=== PATIENT | male | born 1950 | race Caucasian/White ===

== ENCOUNTER 2018-05-09 01:30 | Inpatient (IN) | payer OTHER ==
[~2018-05-09] VITALS: Ht 182.9 cm; Wt 117.9 kg
[~2018-05-09 01:30] MED LIST: FENOFIBRATE145 M1 PO; FOLIC ACID1 M1 PO; HYDROCHLOROTHIA25 M1 PO; LISINOPRIL5 M1 PO
--- NOTE | 2018-05-09 09:42 | Admission Core Measures ---
Acute Coronary Syndrome (CM) ACS Core Measures Acute Coronary Syndrome Diagnosis No Congestive Heart Failure (NEW) CHF Core Measures Congestive Heart Failure Diagnosis No Cerebrovascular Accident CVA Core Measures CVA/TIA Diagnosis No Venous Thromboembolism VTE Core David (View Protocol) VTE Risk Factors Surgery No Mechanical VTE Prophylaxis d/t N/A MechProphylax Ordered No VTE Pharm Prophylaxis d/t NA PharmProphylax ordered Problem List As ranked by this Provider includes Assessment & Plan 1. Unilateral primary osteoarthritis, right hip HOME MEDS Home Med List Fenofibrate Nanocrystallized (Fenofibrate) 145 MG TABLET 1 TAB PO DAILY cholesterol (Reported) Folic Acid 1 MG TABLET 1 TAB PO DAILY supplement (Reported) Hydrochlorothiazide 25 MG TABLET 1 TAB PO DAILY HTN (Reported) Lisinopril 5 MG TABLET 1 TAB PO DAILY htn (Reported)
--- NOTE | 2018-05-09 09:54 | Surg Short-stay <48hrs Dis Sum ---
Visit Information Visit Dates Admission Date: 05/09/18 Discharge Date: 05/11/18 Surgical Short Stay DC Summary Admission Diagnosis: Right hip osteoarthritis Final Diagnosis: Same Procedure(s): Right total hip arthroplasty Summary/Significant Findings: Patient tolerated the procedure well. Postoperatively was voiding spontaneously tolerating regular diet, pain was managed, was seen and ambulated with physical therapy using a rolling walker and was cleared for discharged home with health services Condition at Discharge: Good Discharge Disposition: home health services Discharge instructions provided to patient/family: Yes Post discharge follow-up plan: To follow-up with Dr. VARGAS in 6 weeks
--- NOTE | 2018-05-09 09:57 | Patient Discharge Instructions ---
Discharge Instructions General Discharge Information You were seen/treated for: Right hip osteoarthritis You had these procedures: Right total hip arthroplasty Watch for these problems: Temperature over 100.4 Drainage from wound Unable to bear weight on right lower extremity Chest pain or shortness of breath Do not soak the wound: Yes No bath, but you may shower: Yes Other wound care: Daily dry dressing change Diet Continue normal diet: Yes Activity Activity Self Limited: Yes Activity Limited to: Weight bear as tolerated (WITH ROLLING WALKER) Acute Coronary Syndrome Inclusion Criteria At DC or during hospital stay patient has or had the following: ACS DIAGNOSIS No Discharge Core Measures Meds if any: Prescribed or Continued at Discharge Meds if any: NOT Prescribed or Continued at Discharge Congestive Heart Failure Inclusion Criteria At DC or during hospital stay patient has or had the following: CHF DIAGNOSIS No Discharge Core Measures Meds if any: Prescribed or Continued at Discharge Meds if any: NOT Prescribed or Continued at Discharge Cerebrovascular accident Inclusion Criteria At DC or during hospital stay patient has or had the following: CVA/TIA Diagnosis No Discharge Core Measures Meds if any: Prescribed or Continued at Discharge Meds if any: NOT Prescribed or Continued at Discharge Venous thromboembolism Inclusion Criteria VTE Diagnosis No VTE Type NONE VTE Confirmed by (Test) NONE Discharge Core Measures - Per Current guidelines, there needs to be overlap - treatment for the first 5 days of Warfarin therapy. - If discharged on Warfarin prior to 5 days of - overlap therapy, the patient will need to be - assessed for post discharge needs including - *Post discharge parental anticoagulation - *Warfarin and/or parental anticoagulation education - *Follow up date to check INR post discharge At least 5 days overlap therapy as Inpatient No Meds if any: Prescribed or Continued at Discharge Note: Overlap Therapy is Warfarin and Anticoagulant Meds if any: NOT Prescribed or Continued at Discharge
[2018-05-09] MEDS ORDERED: MIRALAX17 G1 PO (11:31)
[2018-05-09] MEDS ORDERED: ASPIRIN EC81 M1 PO (11:31)
[2018-05-09] MEDS ORDERED: INDOMETHACIN25 M1 PO (11:31)
[2018-05-09] MEDS ORDERED: COLACE100 M1 PO (11:31)
[2018-05-09] MEDS ORDERED: DILAUDID2 M1 PO (11:31)
--- NOTE | 2018-05-09 11:59 | RADIOLOGY REPORT ---
EXAMINATION: XR HIP, RIGHT CLINICAL INFORMATION: Status post right total hip replacement. COMPARISON: None TECHNIQUE: Two views of the right hip. FINDINGS: Evaluation on the lateral view is limited with the femoral and acetabular components not seen and the distal tip of the femoral component is not included. On frontal projection, the total right hip arthroplasty appears intact and is in anatomic alignment on single projection. No hardware failure or salam[place]of bone fracture is seen. IMPRESSION: Limited study. No definite hardware failure or salamatof bone fracture seen.
--- NOTE | 2018-05-09 13:17 | PN- Orthopedic ---
Subjective Subjective: Postop check Patient recovering well in PACU, very sleepy. Patient denies any pain. Tolerating ice chips. Denies nausea vomiting, chest pain or shortness of breath. Patient states that at home he was unable to walk due to pain in his right hip. History of a right total ankle replacement in November of this year. Has a wound on the anterior right ankle that he saw wound care for for about 1 month but has been cleared. States that no further wound care intervention is necessary. Objective Vital Signs and I&Os Intake & Output 05/09 1600 05/09 0800 05/09 0000 05/08 1600 05/08 0805/08 0000 Intake Total Output Total Balance Patient 235 lb Weight Vital signs stable, afebrile Physical Exam: Generalsleepy, no acute distress Respirationsclear Cardiacregular rate and rhythm Extremitiesright thigh is soft with a clean dry dressing. Distal sensory and motor function is intact. Current Medications: Current Medications Sig/Spencer Start time Last Medication Dose Route Stop Time Status Admin Acetaminophen 0 .STK-MED ONE 05/09 745 DC PO Cefazolin Sodium 2,000 MG ONCE ONE 05/09 0830 CAN IV 05/09 831 Cefazolin Sodium 2,000 MG ONCE 05/09 0000 NR IV 05/09 2359 Fenofibrate 145 MG DAILY 05/10 900 AC PO Fentanyl Citrate 0 .STK-MED ONE 05/09 741 DC .ROUTE Hydrochlorothiazide 25 MG DAILY 05/10 0900 AC PO Lisinopril 5 MG DAILY 05/10 900 AC PO Oxycodone HCl 0 .STK-MED ONE 05/09 745 DC PO Tranexamic Acid 0 .STK-MED ONE 05/09 741 DC IV Assessment/Plan Assessment/Plan 67-year-old male with a history of a right total ankle replacement in November, EtOH use, hypertension and hyperlipidemia now status post right total hip arthroplasty postop day 0. Stable, recovering well in PACU. Pain management Indocin for HO ppx for 10 days CIWA DVT prophylaxisaspirin 81 mg twice daily Regular diet IV fluids overnight PTweight-bear as tolerated with rolling walker Follow-up a.m. labs Dressing change postop day with 2 DC planning Core Measures Venous Thromboembolism VTE Risk Factors Surgery No Mechanical VTE Prophylaxis d/t N/A MechProphylax Ordered No VTE Pharm Prophylaxis d/t NA PharmProphylax ordered
--- NOTE | 2018-05-09 13:50 | Operative Report ---
Operative/Inv Procedure Report Surgery Date: 05/09/18 Name of Procedure: Right total hip replacement Pre-Operative Diagnosis: Right hip avascular necrosis Post-Operative Diagnosis: Same Estimated Blood Loss: 250 Surgeon/Radio Station Manager: Rudolph MCKAY,Kojo Noyola Anesthesia: block Operative/Procedure Note Note: Description of Procedure: The patient was taken to the operating room and positively identified. After induction of spinal anesthesia and administration of appropriate pre-operative antibiotics, the patient was positioned supine on the operating room table and all bony prominences were well padded. After performing a surgical timeout, the right lower extremity was prepped and draped in the usual sterile fashion. A direct anterior approach was made to the right hip. The incision was carried sharply through superficial soft tissues to the level of the fascia. Meticulous hemostasis was maintained with Bovie electocautery. The fascia over the tensor fascia christopher muscle was opened sharply and the interval between the TFL and the sartorius was entered bluntly taking care to stay lateral to the lateral femoral cutaneous nerve. Retractors were placed around the femoral neck and the pericapsular fat was identified. The ascending branches of the lateral femoral circumflex vessels were identified and carefully coagulated. The pericapsular fat and anterior capsule were then resected. A napkin ring osteotomy was performed and the femoral head was removed without difficulty. Attention was then turned to the acetabulum. After appropriate placement of retractors, the acetabulum was exposed. Soft tissue was cleaned from the acetabular margin and notch. Overhanging osteophytes were removed and the teardrop was exposed. The acetabulum was then sequentially reamed to accept a 60 mm [place] Tritanium hemispherical solid shell. This was impacted into place in the appropriate position and fitted with a 36 mm Trident X3 zero degree polyethylene insert. Attention was then turned to the femur. After performing the appropriate ligament releases, the proximal femur was exposed. It was then sequentially broached to accept a size 7 David Accolade II 132 neck angle stem. This was trialed for leg length and stability. The trial component was removed and the final component was impacted into place. The trunnion was carefully cleaned and fit with a 36 mm, +2.5 Biolox delta ceramic femoral head. The hip was reduced and put through a full range of motion and found to be stable. The articular space was then irrigated with sterile saline. The periarticular soft tissues were infilitrated with Marcaine. The fascial layer was closed with interrupted #1 vicryl suture and the skin was re-approximated with interrupted 2 -0 vicryl. The skin was closed with a running 3-0 V-Lock suture. Steri-strips and a sterile dressing were applied. The patient was awakened and taken to the recovery room in satisfactory condition.
[2018-05-09 14:30] VITALS: BP 140/78
[2018-05-09 14:45] VITALS: BP 140/78
[2018-05-09 16:30] VITALS: BP 140/76
[2018-05-09 18:30] VITALS: BP 136/70
[2018-05-09 20:30] VITALS: BP 140/86
[2018-05-10 00:26] VITALS: BP 120/78
[2018-05-10 05:01] VITALS: BP 118/70
--- NOTE | 2018-05-10 07:30 | PN- Orthopedic ---
Subjective Subjective: Moderate pain right hip and right thigh. No fever no flulike illness, no other complaints. No nausea no vomiting. He has yet to be out of bed. He is voiding spontaneously. Normal appetite. Objective Vital Signs and I&Os Vital Signs Date Time Temp Pulse Resp B/P B/P Pulse O2 O2 Flow FiO2 Mean Ox Delivery Rate 05/10 0501 98.0 75 22 118/70 95 05/10 0026 98.0 77 22 120/78 96 Room Air 05/09 2030 97.7 80 20 140/86 98 Room Air 05/09 1850 Room Air 05/09 1830 98.4 79 20 136/70 97 Room Air 05/09 1630 99.1 80 20 140/76 95 Room Air 05/09 1445 98.2 73 18 140/78 98 Room Air 05/09 1430 98.2 73 18 140/78 Intake & Output 05/10 1600 05/10 0800 16 0000 05/09 1600 05/09 0800 05/09 0000 Intake Total 500 1400 1440 Output Total 800 550 Balance -564 119 6156 Intake, IV 975 211 5959 Intake, Oral 400 800 240 Number 0 Bowel Movements Output, Urine 800 550 Patient 260 lb Weight Weight Reported by Patient Measurement Method Physical Exam: Well-developed well-nourished no apparent distress. HEENT: Atraumatic, extraocular motion intact Neck: Supple, no lymphadenopathy Respiratory: No respiratory distress Extremities: No edema RIGHT lower extremity hip dressing in place, Dressing clean dry and intact Mild thigh swelling No signs of infection. No shortening or rotation Hip range of motion is limited and without unexpected pain Neurovascularly intact distally Bilateral calves are supple, nontender. Neuro: Alert and oriented x3 Psych: Mood affect normal, normal memory normal judgment. Skin: Warm and dry, no rash on exposed skin Results Last 48 Hours of Labs: Laboratory Tests 05/10 0609 Chemistry Sodium Pending Potassium Pending Chloride Pending Carbon Dioxide Pending Anion Gap Pending BUN Pending Creatinine Pending BUN/Creatinine Ratio Pending Hematology CBC w Diff NO MAN DIFF REQ WBC (4.8 - 10.8 /CUMM) 8.5 RBC (4.70 - 6.10 /CUMM) 4.17 L Hgb (14.0 - 18.0 G/DL) 12.5 L Hct (42 - 52 %) 36.6 L MCV (80.0 - 94.0 FL) 87.7 MCH (27.0 - 31.0 PG) 30.0 MCHC (33.0 - 37.0 G/DL) 34.1 RDW (11.5 - 14.5 %) 14.6 H Plt Count (130 - 400 /CUMM) 276 MPV (7.4 - 10.4 FL) 7.9 Gran % (42.2 - 75.2 %) 69.4 Lymphocytes % (20.5 - 51.1 %) 11.7 L Monocytes % (1.7 - 9.3 %) 13.3 H Eosinophils % (0 - 5 %) 5.2 H Basophils % (0.0 - 2.0 %) 0.4 Absolute Granulocytes (1.4 - 6.5 /CUMM) 5.9 Absolute Lymphocytes (1.2 - 3.4 /CUMM) 1.0 L Absolute Monocytes (0.10 - 0.60 /CUMM) 1.1 H Absolute Eosinophils (0.0 - 0.7 /CUMM) 0.4 Absolute Basophils (0.0 - 0.2 /CUMM) 0 Assessment/Plan Assessment/Plan Postop day #1 status post right total hip arthroplasty Perioperative antibiotics. Pain medication as needed. Out of bed Physical therapy, weightbearing as tolerated DC IV fluids Regular diet Follow a.m. labs Aspirin for DVT prophylaxis Indocin to prevent heterotopic ossification Continue CIWA protocol, history of EtOH ALPS for DVT prophylaxis Regular home meds Dressing change postop day 2 Anticipate discharge home with [facility] services in 1-2 days Core Measures Venous Thromboembolism VTE Risk Factors Surgery No Mechanical VTE Prophylaxis d/t N/A MechProphylax Ordered No VTE Pharm Prophylaxis d/t NA PharmProphylax ordered
[2018-05-10 07:35] LABS: ABSOLUTE BASOPHIL COUNT 0 /CUMM (0.0-0.2); ABSOLUTE EOSINOPHIL COUNT 0.4 /CUMM (0.0-0.7); ABSOLUTE GRANULOCYTE CT 5.9 /CUMM (1.4-6.5); ABSOLUTE MONOCYTE COUNT 1.1 /CUMM (0.10-0.60); BASOPHIL % 0.4 % (0.0-2.0); EOSINOPHIL % 5.2 % (0-5); GRANULOCYTE % 69.4 % (42.2-75.2); HEMATOCRIT 36.6 % (42-52); MEAN CORPUSCULAR HGB CONC 34.1 G/DL (33.0-37.0); MEAN CORPUSCULAR VOLUME 87.7 FL (80.0-94.0); MEAN PLATELET VOLUME 7.9 FL (7.4-10.4); PLATELET COUNT 276 /CUMM (130-400); RBC DISTRIBUTION WIDTH 14.6 % (11.5-14.5); RED BLOOD CELL CT 4.17 /CUMM (4.70-6.10); WHITE BLOOD CELL COUNT 8.5 /CUMM (4.8-10.8)
[2018-05-10 11:38] VITALS: BP 126/70
[2018-05-10 13:41] VITALS: BP 118/80
[2018-05-10 21:50] VITALS: BP 116/74
[2018-05-10 22:00] VITALS: BP 116/74
[2018-05-11 02:30] VITALS: BP 112/70
[2018-05-11 06:19] VITALS: BP 134/72
--- NOTE | 2018-05-11 07:54 | PN- Orthopedic ---
Subjective Subjective: pod#2 s/p right josie doing well no major issues overnight deneis cp, sob, no n+v with diet ambulating well with pt Objective Vital Signs and I&Os Vital Signs Date Time Temp Pulse Resp B/P B/P Pulse O2 O2 Flow FiO2 Mean Ox Delivery Rate / 0619 98.1 79 18 134/72 96 Room Air / 0230 98.0 90 18 112/70 95 Room Air /17 0000 Room Air /16 2200 98.3 83 18 116/74 08/16 2150 98.3 83 18 116/74 96 Room Air 08/16 1600 Room Air / 1341 97.5 81 20 118/80 96 Room Air / 1138 97.3 77 20 126/70 96 Room Air / 0800 Room Air Intake & Output / 0800 08/17 0000 08/16 1600 /16 0800 /16 0000 15 1600 Intake Total 975 100 394 9845 1440 Output Total 400 800 550 Balance 975 80 -213 238 1516 Intake, IV 369 082 3172 Intake, Oral 975 480 400 800 240 Number 0 Bowel Movements Output, Urine 400 800 550 Patient 260 lb Weight Weight Reported by Patient Measurement Method Physical Exam: cv: rrr lungs: clear abd: soft, +bs ext: drsg changed, wound c/d/i thigh soft distal cms intact, no calf tenderness bilat Assessment/Plan Assessment/Plan ortho stable plan cont oob with pt cont current med regime ok for home d/c today f/u dr king 6 weeks Core Measures Venous Thromboembolism VTE Risk Factors Surgery No Mechanical VTE Prophylaxis d/t N/A MechProphylax Ordered No VTE Pharm Prophylaxis d/t NA PharmProphylax ordered
== END 2018-05-11 13:20 | disposition home health service (06) | DRG 470 ==
LOC: SDA 01:30 → 2NA 01:30 → SDA 07:00 → ENRESERV 12:30 → ENTRNSPT 13:12 → EDTRNSPT 13:15 → EDTRNSPTSTS 13:15 → 2NA 13:28 → CMPTRNSPT 13:32 → ENPENDDIS 05-11 07:46 → 2NA 05-11 13:20
PROVIDERS: Physician Assistant Surgical
PROC: 0SR90JZ Replacement of Right Hip Joint with Synthetic Substitute, Open Approach (ICD-10-PCS; principal; 2018-05-09)
DX: M16.11 Unilateral primary osteoarthritis, right hip (principal); G91.2 (Idiopathic) normal pressure hydrocephalus; E66.9 Obesity, unspecified; Z68.37 Body mass index [BMI] 37.0-37.9, adult; E11.9 Type 2 diabetes mellitus without complications; E78.5 Hyperlipidemia, unspecified; Z87.891 Personal history of nicotine dependence; Z95.828 Presence of other vascular implants and grafts
CPT/HCPCS: 2NASP; 36592; 73502-RT; 82436; 97110-GO; 97116-GO; 97161-GP; 97530-GO; J0690; J0735; J1815; J2405; J3490; J7042